=== PATIENT | male | born 1950 | race Caucasian/White ===

== ENCOUNTER 2019-05-02 10:34 | Inpatient (IN) | payer OTHER ==
[~2019-05-02] VITALS: Ht 175.3 cm; Wt 110.0 kg
[2019-05-02] MEDS ORDERED: SODIUM CHLORIDE 0.9% 1,000 ML IV ONE ×2 (11:45→18:00)
[2019-05-02] MEDS ORDERED: ONDANSETRON HCL 4 MG/2 ML VIAL IV ONE ×2 (11:45→12:00)
[2019-05-02 12:28] LABS: Basophils # (auto) 0 uL; Eosinophils # (auto) 0 uL; Eosinophils % (auto) 0.1 % (0.0-7.0); Hematocrit 36.4 % (41.0-53.0); Hemoglobin 12.5 g/dL (13.5-17.5); Lymphocytes # (auto) 0.5 uL; Lymphocytes % (auto) 15.2 % (10.0-50.0); Mean Corpuscular Hemoglobin 31.8 pg (28.0-32.0); Mean Corpuscular Hgb Conc. 34.3 g/dL (32.0-36.0); Mean Corpuscular Volume 92.9 fL (80.0-100.0); Monocytes # (auto) 0.6 uL; Monocytes % (auto) 16.8 % (0.0-12.0); Neutrophils # (auto) 2.4 uL; Neutrophils % (auto) 66.9 % (37.0-80.0); Nucleated Red Blood Cells % 0.1 %; Platelet Count (auto) 79 10^3/uL (140-450); Red Blood Cells 3.92 10^6/uL (4.5-5.90); Red Cell Distribution Width 14.1 % (11.8-14.3); White Blood Cell 3.5 10^3/uL (4.4-10.8)
[2019-05-02 12:37] LABS: INR 1.17 (0.9-1.15); Partial Thromboplastin Time 31.6 sec (23.64-32.05)
[2019-05-02 12:41] LABS: Chloride 106 mmol/L (98-107); Potassium 4.2 mmol/L (3.5-5.1); Sodium 136 mmol/L (136-145)
[2019-05-02 12:48] LABS: Urine Bacteria NONE SEEN /hpf (None Seen); Urine Blood TRACE /uL (Negative); Urine Specific Gravity 1.019 (1.001-1.035); Urine WBC 1 /hpf (0 - 3)
[2019-05-02 12:54] LABS: Alanine Aminotransferase 39 U/L (16-61); Alkaline Phosphatase 65 U/L (45-117); Anion Gap 8 (5-15); Aspartate Aminotransferase 50 U/L (15-37); BUN/Creatinine Ratio 13.1; Bilirubin, Total 1.1 mg/dL (0.2-1.0); Blood Urea Nitrogen 20 mg/dL (7-18); Calcium 9.2 mg/dL (8.5-10.1); Carbon Dioxide 22 mmol/L (21-32); GFR African American 59 mL/min; GFR Non-African American 48 mL/min; Glucose 91 mg/dL (74-106); Total Protein 7.7 g/dL (6.4-8.2)
[2019-05-02] MEDS ORDERED: LORazepam 2MG/ML-1ML VIAL IV ONE (14:45)
[2019-05-02] MEDS ORDERED: LORazepam 2MG/ML-1ML VIAL ONE (14:47)
[2019-05-02] MEDS ORDERED: MORPHINE SULF INJ 2 MG/ML SYRINGE 1ML IV PRN (15:00)
[2019-05-02] MEDS ORDERED: ONDANSETRON HCL 4 MG/2 ML VIAL IV PRN (15:00)
[2019-05-02] MEDS ORDERED: NITROGLYCERIN 0.4 MG SL TAB SL PRN (15:00)
[2019-05-02] MEDS: ACETAMINOPHEN 500 MG TAB PO PRN (15:09)
[2019-05-02 15:11] VITALS: BP 161/94
[2019-05-02] MEDS ORDERED: ACETAMINOPHEN 325 MG TAB PO ONE (15:15)
[2019-05-02] MEDS ORDERED: FAMOTIDINE (10MG/ML) 2ML VL IV SCH (15:15)
[2019-05-02] MEDS: cefTRIAXone 1GM/50ML D5W 50 ML IV SCH (15:18)
[2019-05-02] MEDS: AZITHROMYCIN 500MG/ 250ML 250 ML IV SCH (16:32)
--- NOTE | 2019-05-02 18:26 | NUR ---
RECEIVED REPORT FROM SERGE ORTIZ IN ER WILL AWAIT PATIENT.
[2019-05-02 18:55] VITALS: BP 145/90
--- NOTE | 2019-05-02 18:57 | NUR ---
RECEIVED PATIENT TO THE FLOOR, AWAKE ALERT AND ORIENTED X4. PATIENT AMBULATED TO BED FROM WHEEL CHAIR. BED LOCKED IN LOWEST POSITION WITH TWO SIDE RAILS UP AND CALL LIGHT IN REACH. PATIENT SHIVERING BUT HAS NO FEVER TEMPERATURE IS 98.2 F. COOLING MEASURES INITIATED UPON ARRIVAL PER ER AND PATIENT HOOKED UP TO 3 L NC. SEIZURES PRECAUTIONS PLACED. 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 VS STABLE AT THIS TIME 145/90, 83, 95%, RR 20. WILL ENDORSE ADMISSION AND CARE TO [facility] NURSE.
[2019-05-02] MEDS: ALBUTEROL SULF 2.5 MG/0.5ML(0.5%) NEB SOLN NEB SCH (19:13)
[2019-05-02] MEDS: IPRATROPIUM BROM 0.5 MG/2.5ML INH SOL NEB SCH (19:14)
--- NOTE | 2019-05-02 19:30 | NUR ---
Opening Shift Note Assumed care of patient, awake and alert. No S/S of distress/SOB or pain. Instructed on POC and to call for assist PRN, will continue to monitor for changes Q1hr and PRN. Patient altered unable to follow commands or redirect. Patient removed PIV in ER requires 1:1 monitoring for patient safety. Patient has sitter at bedside to help monitor patient safety.
[2019-05-02] MEDS: CLINDAMYCIN 300MG IV 50 ML IV SCH (20:21)
[2019-05-02] MEDS: FAMOTIDINE (10MG/ML) 2ML VL IV SCH (20:23)
[2019-05-02] MEDS: MORPHINE SULF INJ 2 MG/ML SYRINGE 1ML IV PRN (21:33)
[2019-05-02 22:00] VITALS: BP 137/63
[2019-05-02] MEDS ORDERED: DIVA500T13 PO (22:50)
[2019-05-02] MEDS ORDERED: AMLO5TAB15 PO (22:50)
[2019-05-02] MEDS ORDERED: LORA-622 PO (22:50)
[2019-05-02] MEDS ORDERED: TRAZ100T2 PO (22:50)
[2019-05-02] MEDS ORDERED: DOCU100T15 PO (22:50)
[2019-05-02] MEDS ORDERED: OXCA600T3 PO (22:50)
--- NOTE | 2019-05-02 23:03 | NUR ---
DIFFICULTY SLEEPING PATIENT HAS DIFFICULTY SLEEPING. PATIENT REGULARLY TAKE TRAZADONE 100MG PO QHS AT HOME. MEDICATION RECONCILIATION UPDATED. PAGED HOSPITALIST TO GET ORDERS. AWAITING CALLBACK.
[2019-05-03] MEDS ORDERED: TEMAZEPAM 15 MG CAP PO ONE (00:30)
--- NOTE | 2019-05-03 00:30 | NUR ---
SLEEP AID ADMINISTERED RESTORIL 15MG PO PRESCRIBED PATIENT TOLERATED WELL. PATIENT IS ON AND OFF SLEEPING BUT STILL WAKES UP AND IS FORGETFUL YET SOMETIMES EASY TO REDIRECT. SITTER AT BEDSIDE.
--- NOTE | 2019-05-03 03:30 | NUR ---
IV ACCESS PATIENT IV ACCESS TO LEFT HAND WAS DISLODGED. PATIENT WAS TRYING TO GET OUT OF BED AND PULLED ON IV ACCESS AND WAS REMOVED. INSERTED 22G LFA WITH NS@100 WILL CONTINUE TO MONITOR PATIENT. SITTER AT BEDSIDE.
[2019-05-03 05:00] VITALS: BP 139/89
[2019-05-03] MEDS: CLINDAMYCIN 300MG IV 50 ML IV SCH ×3 (05:58→19:35)
[2019-05-03] MEDS ORDERED: OXCA600T3 PO ×2 (06:33)
--- NOTE | 2019-05-03 06:33 | NUR ---
SPOKE WITH SPOUSE YAYA REGARDING PATIENT STATUS AND WENT OVER MEDICATION LIST. MEDICATION WAS SENT UP WITH PATIENT. AND LEFT IN BEDSIDE DRAWER.
[2019-05-03 06:42] LABS: Basophils # (auto) 0 uL; Basophils % (auto) 1.2 % (0.0-2.0); Eosinophils # (auto) 0 uL; Hematocrit 31.3 % (41.0-53.0); Hemoglobin 11.2 g/dL (13.5-17.5); Lymphocytes # (auto) 0.5 uL; Lymphocytes % (auto) 16.7 % (10.0-50.0); Mean Corpuscular Hemoglobin 32.1 pg (28.0-32.0); Mean Corpuscular Hgb Conc. 35.7 g/dL (32.0-36.0); Monocytes # (auto) 0.5 uL; Neutrophils % (auto) 66.1 % (37.0-80.0); Nucleated Red Blood Cells % 0.1 %; Platelet Count (auto) 59 10^3/uL (140-450); Red Blood Cells 3.48 10^6/uL (4.5-5.90); Red Cell Distribution Width 13.8 % (11.8-14.3); White Blood Cell 3.1 10^3/uL (4.4-10.8)
[2019-05-03 06:52] LABS: BUN/Creatinine Ratio 14.5; Calcium 8.4 mg/dL (8.5-10.1); Potassium 3.9 mmol/L (3.5-5.1)
[2019-05-03] MEDS: IPRATROPIUM BROM 0.5 MG/2.5ML INH SOL NEB SCH ×3 (07:02→19:36)
[2019-05-03] MEDS: ALBUTEROL SULF 2.5 MG/0.5ML(0.5%) NEB SOLN NEB SCH ×3 (07:02→19:36)
--- NOTE | 2019-05-03 07:45 | NUR ---
Patient in bed, oriented x2, with scab on the left elbow. Sitter at bedside.
--- NOTE | 2019-05-03 08:00 | NUR ---
Patient is oriented x2, in bed. Sitter at bedside.
[2019-05-03 08:33] VITALS: BP 106/53
--- NOTE | 2019-05-03 08:50 | NUR ---
said patient fell at home.
[2019-05-03] MEDS: cefTRIAXone 1GM/50ML D5W 50 ML IV SCH (08:54)
[2019-05-03] MEDS: HYDROcodone-ACET 5/325MG TAB PO PRN ×2 (10:04→19:34)
[2019-05-03] MEDS: AZITHROMYCIN 500MG/ 250ML 250 ML IV SCH (10:04)
[2019-05-03] MEDS: FAMOTIDINE (10MG/ML) 2ML VL IV SCH ×2 (10:04→19:36)
--- NOTE | 2019-05-03 10:04 | NUR ---
Patient stated he's in pain. [place] 5/325 PO given for pain. at bedside.
--- NOTE | 2019-05-03 11:40 | NUR ---
Augusto Olsen came over to see the patient. MD looked at the patient's own medications from home. Dr. Armas to put in the orders for POM.
[2019-05-03] MEDS ORDERED: amLODIPine BESYLATE 5 MG TAB PO ONE (11:45)
--- NOTE | 2019-05-03 12:42 | NUR ---
Patient's Own Medications given to patient's to take home.
[2019-05-03 12:58] VITALS: BP 124/75
--- NOTE | 2019-05-03 14:09 | NUR ---
Paged the Engineering again to fix the A/C, the room is very cold.
--- NOTE | 2019-05-03 16:33 | NUR ---
Paged the Engineering again to fix the A/C in the room. Patient is shivering from cold. Additional blankets, hot pack given to patient. Sitter at bedside. came over.
--- NOTE | 2019-05-03 17:50 | NUR ---
Patient sitting up, laying down in bed, with no gown. said patient took off the gown and the Telemetry pack on the chest. Patient on Bed A is yelling, sitter and another SALES REPRESENTATIVE PUBLICATION[employer] are cleaning the patient on Bed A.
[2019-05-03] MEDS: OXcarbazepine 300 MG TAB PO SCH (17:53)
--- NOTE | 2019-05-03 17:55 | NUR ---
Informed Charge Nurse Carlota if patient can be transferred to another sitter room, patient is getting restless because patient on Bed A keeps yelling.
[2019-05-03] MEDS: ACETAMINOPHEN 500 MG TAB PO PRN (19:35)
[2019-05-03] MEDS: traZODone HCL 50 MG TAB PO SCH (19:35)
[2019-05-03] MEDS: DOCUSATE SOD 100 MG CAP PO SCH (19:35)
--- NOTE | 2019-05-03 20:00 | NUR ---
PATIENT REMOVED ALL TELEMETRY AND CLOTHING UNABLE TO REDIRECT PATIENT. PATIENT CONTINUES TO BE AGGITATED WILL REATTEMPT LATER WHEN PATIENT IS MORE CALM
[2019-05-03 22:00] VITALS: BP 103/71
--- NOTE | 2019-05-03 22:30 | NUR ---
ATTEMPTED TO REAPPLY TELEMETRY YET PATIENT IS STILL AGGITATED GETTING IN AND OUT OF BED TO USE BSC AND REFUSES TO WEAR A HOSPITAL GOWN ON.
[2019-05-04] MEDS ORDERED: HYDR-4833 PO (01:14)
[2019-05-04] MEDS ORDERED: PREG75CA PO (01:14)
[2019-05-04] MEDS ORDERED: PRAV20TA3 PO (01:14)
[2019-05-04] MEDS ORDERED: ASPI-231 PO (01:14)
[2019-05-04] MEDS ORDERED: FOLI1TAB6 PO (01:14)
[2019-05-04] MEDS ORDERED: B COCAP3 OR (01:14)
[2019-05-04] MEDS ORDERED: CITA-73 PO (02:07)
[2019-05-04] MEDS ORDERED: SILD100T57 PO (02:07)
[2019-05-04] MEDS ORDERED: ARTISOL13 EACHEYE (02:07)
[2019-05-04] MEDS ORDERED: FERRCAP9 PO (02:07)
[2019-05-04] MEDS ORDERED: OXYB5TAB24 PO (02:10)
--- NOTE | 2019-05-04 02:20 | NUR ---
PATIENT MORE CALM AND SLEEPING IN BED PLACED PATIENT BACK ON TELEMETRY. T-99.4 PATIENT SR@79
--- NOTE | 2019-05-04 02:58 | NUR ---
INFLUENZA A/B SWAB SENT
[2019-05-04] MEDS: HYDROcodone-ACET 5/325MG TAB PO PRN (04:41)
[2019-05-04] MEDS: CLINDAMYCIN 300MG IV 50 ML IV SCH ×3 (04:56→22:00)
[2019-05-04] MEDS: OXcarbazepine 300 MG TAB PO SCH ×2 (04:56→17:19)
--- NOTE | 2019-05-04 06:15 | NUR ---
PATIENT RESTING IN BED COMFORTABLY IN BED ASLEEP. REAPPLIED TELEMETRY. YET UNABLE TO PUT HOSPITAL GOWN ON PATIENT. WILL ENDORSE TO AM NURSE TO TRY TO D/C TELEMETRY SINCE PATIENT IS NONCOMPLIANT Addendum: 05/04/19 at 0704 by MERLE CARRASCO RN RN [employer] HEAD STATES PATIENT IS OFF TELEMETRY. PATIENT IS VERY ANXIOUS AND RIPPED IT OFF PER SITTER. INFORMED PATIENT THAT TELEMETRY NEEDS TO BE ON TO MONITOR HIS HEART. PLACED PATIENT BACK ON TELEMETRY
[2019-05-04] MEDS: ALBUTEROL SULF 2.5 MG/0.5ML(0.5%) NEB SOLN NEB SCH ×3 (07:29→19:50)
[2019-05-04] MEDS: IPRATROPIUM BROM 0.5 MG/2.5ML INH SOL NEB SCH ×3 (07:29→19:50)
--- NOTE | 2019-05-04 07:30 | NUR ---
PATIENT REFUSING TELE AT THIS TIME. PATIENT HAS QUILT SEWER AT BEDSIDE. EDUCATED PATIENT ON PURPOSE AND RISK FACTORS OF TELE MONITORING. PATIENT STILL REFUSES TO WEAR MONITOR
[2019-05-04 09:00] VITALS: BP 134/87
[2019-05-04] MEDS: DOCUSATE SOD 100 MG CAP PO SCH ×2 (10:02→19:48)
[2019-05-04] MEDS: amLODIPine BESYLATE 5 MG TAB PO SCH (10:07)
--- NOTE | 2019-05-04 10:07 | NUR ---
pt is 100% service connected, [facility] does not have any beds if we were considering transferring pt per Linda at the [place]
[2019-05-04] MEDS: cefTRIAXone 1GM/50ML D5W 50 ML IV SCH (10:08)
[2019-05-04] MEDS: AZITHROMYCIN 500MG/ 250ML 250 ML IV SCH (10:11)
[2019-05-04] MEDS: FAMOTIDINE (10MG/ML) 2ML VL IV SCH ×2 (10:15→19:50)
--- NOTE | 2019-05-04 11:46 | NUR ---
Initial Nutrition Assessment: See under Interventions for details Estimated needs based on AJBW 81.3 kg-wt maintenance factors/geriatric needs 1882-0126 kcal (25-30 kcal/kg) 81-98 g (1.0-1.2 g protein/kg) Addendum: 05/04/19 at [address] Amended: Links added.
[2019-05-04] MEDS: ALPRAZolam 0.5 MG TAB PO SCH ×2 (12:19→19:48)
[2019-05-04] MEDS: SODIUM CHLORIDE 0.9% 1,000 ML IV SCH ×2 (12:20→21:00)
[2019-05-04 13:00] VITALS: BP 120/53
--- NOTE | 2019-05-04 13:40 | NUR ---
CALLED DR Raji BISWAS. UPDATED M.D OF PATIENT IRRITABLE BEHAVIOR. PATIENT IS AGITATED AND CONFUSED. 1 MG XANAX PO HAS BEEN ADMINISTERED, WITH NO THERAPEUTIC EFFECT. NEW ORDERS RECEIVED FOR IM HALDOL 5MG, CT OF HEAD WITHOUT CONTRAST, AND NEURO CONSULT. SPOOL SALVAGER AT BEDSIDE WITH PATIENT
[2019-05-04] MEDS ORDERED: HALOPERIDOL LACTATE 5 MG/ML INJ VIAL IM ONE (13:45)
--- NOTE | 2019-05-04 13:46 | NUR ---
ALCOHOL CONSUMPTION DENIED BY . STATES PATIENT DOES NOT CONSUME ANY SUBSTANCE THAT WOULD ALTER IS MENTALITY EXCEPT FOR PRESCRIBED PAIN KILLERS. PATIENT'S STATES NORCO 5/325 QID PRN IS WHAT PATIENT IS PRESCRIBED. MEDICATION CAN BE LOCATED IN MED REC. PATIENT TAKES MEDICATION AT HOME PRN.
--- NOTE | 2019-05-04 15:52 | NUR ---
REPORT GIVEN TO ERMIAS ORTIZ. PATIENT RESTING IN BED WITH NO S/S OF DISTRESS, SOB, OR PAIN. AIRPLANE DISPATCH CLERK AT BEDSIDE.
[2019-05-04] MEDS: Ensure Enlive Strawberry 8oz Bottle PO SCH (17:19)
[2019-05-04 17:43] VITALS: BP 139/90
[2019-05-04] MEDS: MORPHINE SULF INJ 2 MG/ML SYRINGE 1ML IV PRN (17:56)
[2019-05-04] MEDS: traZODone HCL 50 MG TAB PO SCH (19:50)
--- NOTE | 2019-05-04 20:37 | NUR ---
NEURO DR QUEEN AT BEDSIDE FOR NEURO CONSULT
[2019-05-04 21:44] VITALS: BP 131/74
[2019-05-05] MEDS: ACETAMINOPHEN 500 MG TAB PO PRN ×3 (00:20→23:05)
--- NOTE | 2019-05-05 00:30 | NUR ---
PAIN PT C/O OF GENERALIZED PAIN 02/08. PATIENT LOOKS UNCOMFORTABLE AND GUARDING RESTLESS IN BED . ADMINISTERED MORPHINE IV PRESCRIBED. PATIENT TOLERATED WELL. WILL CONTINUE TO MONITOR PATINET.
[2019-05-05] MEDS: CLINDAMYCIN 300MG IV 50 ML IV SCH ×3 (04:40→22:00)
[2019-05-05 05:00] VITALS: BP_SYST 105; BP_SYST 152; BP_DIAS 70; BP_DIAS 80
[2019-05-05] MEDS: OXcarbazepine 300 MG TAB PO SCH ×2 (05:30→18:00)
[2019-05-05] MEDS: ALPRAZolam 0.5 MG TAB PO SCH (05:30)
--- NOTE | 2019-05-05 05:30 | NUR ---
FEVER/PAIN PT C/O OF GENERALIZED PAIN AND HAD T100.2 ADMINISTERED NORCO 1 TAB PO PRESCRIBED. COOLING MEASURES INITIATED. PATIENT CONTINUES OF IVF NS@100. Addendum: 05/05/19 at 0649 by MERLE CARRASCO RN RN PATIENT RESTING IN BED ATTEMPTED TO REAPPLY PATIENT TELEMETRY WITH NO SUCCESS. PATIENT TEMP 98.7 AND CONTINUES ON IVF NS@100. SITTER AT BEDSIDE TO MONITOR PATIENT. SAFETY.
[2019-05-05] MEDS: HYDROcodone-ACET 5/325MG TAB PO PRN (05:45)
[2019-05-05] MEDS: SODIUM CHLORIDE 0.9% 1,000 ML IV SCH ×2 (06:38→17:00)
[2019-05-05] MEDS: ALBUTEROL SULF 2.5 MG/0.5ML(0.5%) NEB SOLN NEB SCH ×3 (07:07→18:54)
[2019-05-05] MEDS: IPRATROPIUM BROM 0.5 MG/2.5ML INH SOL NEB SCH ×3 (07:07→18:54)
[2019-05-05 09:00] VITALS: BP 117/70
[2019-05-05 09:29] VITALS: BP 105/70
[2019-05-05] MEDS: cefTRIAXone 1GM/50ML D5W 50 ML IV SCH (10:20)
[2019-05-05] MEDS: Ensure Enlive Strawberry 8oz Bottle PO SCH ×2 (10:20→18:00)
[2019-05-05] MEDS: FAMOTIDINE (10MG/ML) 2ML VL IV SCH ×2 (10:20→22:00)
[2019-05-05] MEDS: AZITHROMYCIN 500MG/ 250ML 250 ML IV SCH (10:21)
[2019-05-05] MEDS: DOCUSATE SOD 100 MG CAP PO SCH ×2 (10:21→22:00)
[2019-05-05] MEDS: amLODIPine BESYLATE 5 MG TAB PO SCH (10:24)
[2019-05-05] MEDS: HALOPERIDOL LACTATE 5 MG/ML INJ VIAL IM PRN ×2 (11:56→20:21)
[2019-05-05 13:00] VITALS: BP 132/115
--- NOTE | 2019-05-05 13:09 | NUR ---
Fever Reported to nurse by tresa that patient has a fever of 102.1. Doctor Arnoldo called to make aware. New orders for repeat blood and urine cultures. Will administer tylenol and continue to monitor.
--- NOTE | 2019-05-05 16:25 | NUR ---
assessment Patient is a 68 year old male who is confused. Prior to admission patient lived home with his Anna and was independent. Per Anna patient has a fww for home use. Per Anna patients PCP is Dr Dial at the [facility]. Anna informed me patient had a high fever and was becoming confused. Anna took him to the [facility] and they wound not see him as a walk in. Anna then brought patient to urgent care and then was admitted through the ER. Per Anna this is new confusion. Per Anna patient will return home with her on discharge. Anna will be here in the morning to see patient and speak to the MD. Patient does not have a advanced directive or POA. I informed Anna once patient is alert and oriented he should fill out and have notarized advance directive. Anna verbalized understanding and agreed to discharged plan home. Addendum: 05/05/19 at 1630 by Martha BIGGS Amended: Links added.
[2019-05-05 18:17] VITALS: BP 126/68
--- NOTE | 2019-05-05 18:55 | NUR ---
Respiratory note: PT SLEEPING AT THIS TIME, NO RESP DISTRESS NOTED.
--- NOTE | 2019-05-05 20:38 | NUR ---
Opening Shift Note Assumed care of patient, awake and alert aggitated anxious and unable to follow commands. patient was moved from 285B to 294A. He might be anxious from the move, yet unable to calm or redirect. No S/S of respiratory distress/SOB or pain. Administered pt Haldol 2.5mg IM Left deltoid. patient tolerated well. Instructed on POC and to call for assist PRN sitter at bedside for patient safety, will continue to monitor for changes Q1hr and PRN. Addendum: 05/05/19 at 2042 by MERLE CARRASCO RN RN patient had fever earlier. rechecked patient is 97.9 afebrile.
[2019-05-05 22:00] VITALS: BP 125/99
[2019-05-05] MEDS: traZODone HCL 50 MG TAB PO SCH (22:00)
[2019-05-06] MEDS: SODIUM CHLORIDE 0.9% 1,000 ML IV SCH ×3 (03:00→23:00)
[2019-05-06] MEDS: HYDROcodone-ACET 5/325MG TAB PO PRN (03:57)
[2019-05-06] MEDS: OXcarbazepine 300 MG TAB PO SCH ×2 (06:24→18:28)
[2019-05-06] MEDS: CLINDAMYCIN 300MG IV 50 ML IV SCH ×3 (06:24→22:26)
--- NOTE | 2019-05-06 06:48 | NUR ---
PATIENT SLEPT ALMOST THRU THE NIGHT. YET THIS MORNING HES WAS INCONTINENT OF URINE, AND WAS ABLE TO MAKE SENSE OF WHAT HE WAS SAYING, ANSWERED APPROPRIATELY. SITTER AT BEDSIDE. WILL CONTINUE TO MONITOR PATIENT.
--- NOTE | 2019-05-06 07:15 | NUR ---
Opening Note Received report from restaurant shift supervisor RN. Patient is resting in bed, anxious and restless. Patient is alert and oriented x3. Patient is on 3L NC, respirations even and unlabored. Patient denies pain at this time. Sitter at bedside for safety. Reviewed plan of care with patient, patient unable to verbalize understanding. Bed in low and locked position, call light within reach. Will continue to monitor Q1 hour and PRN.
[2019-05-06] MEDS: ALBUTEROL SULF 2.5 MG/0.5ML(0.5%) NEB SOLN NEB SCH ×3 (08:53→19:59)
[2019-05-06] MEDS: IPRATROPIUM BROM 0.5 MG/2.5ML INH SOL NEB SCH ×3 (08:53→19:59)
[2019-05-06 09:00] VITALS: BP 150/90
[2019-05-06] MEDS: AZITHROMYCIN 500MG/ 250ML 250 ML IV SCH (09:13)
[2019-05-06] MEDS: Ensure Enlive Strawberry 8oz Bottle PO SCH ×2 (09:14→18:28)
--- NOTE | 2019-05-06 09:38 | NUR ---
Unable to do EEG Per tech, patient was unable to complete EEG.
--- NOTE | 2019-05-06 09:43 | NUR ---
2ND EEG ATTEMPT UNSUCCESSFUL. PATIENT IS STILL RESTLESS. RN SUMMER NOTIFIED.
--- NOTE | 2019-05-06 09:50 | NUR ---
Urine sample collected and sent to lab
[2019-05-06] MEDS: DOCUSATE SOD 100 MG CAP PO SCH ×2 (10:00→22:30)
[2019-05-06] MEDS: amLODIPine BESYLATE 5 MG TAB PO SCH (10:07)
[2019-05-06] MEDS: FAMOTIDINE (10MG/ML) 2ML VL IV SCH ×2 (10:08→22:27)
[2019-05-06] MEDS: cefTRIAXone 1GM/50ML D5W 50 ML IV SCH (10:46)
--- NOTE | 2019-05-06 10:54 | NUR ---
Dr. Raji Armas Reviewing plan of care with patient and family.
--- NOTE | 2019-05-06 11:45 | NUR ---
Patient agitated Patient trying to get out of bed, patient states he wants to go home. Family at bedside, unable to calm patient down. Will medicate with PRN Haldol. Dr. Raji Armas aware. Will continue to monitor Q1 hour and PRN. Sitter at bedside for safety.
[2019-05-06] MEDS: HALOPERIDOL LACTATE 5 MG/ML INJ VIAL IM PRN (11:48)
--- NOTE | 2019-05-06 11:48 | NUR ---
Haldol Administered PRN Haldol administered for agitation. Will continue to monitor Q1 hour and PRN.
--- NOTE | 2019-05-06 12:50 | NUR ---
Bowel Movement Patient assisted to bedside commode, patient had large, soft stool. Patient cleaned and assisted back to bed. Will continue to monitor Q1 hour and PRN. Sitter at bedside for safety.
--- NOTE | 2019-05-06 15:28 | NUR ---
Rounds Patient resting in bed with eyes closed. No signs or symptoms of distress noted at this time. Will continue to monitor Q1 hour and PRN. Sitter at bedside for safety.
[2019-05-06 17:20] VITALS: BP 128/83
[2019-05-06 17:25] VITALS: BP 128/83
--- NOTE | 2019-05-06 19:15 | NUR ---
Closing Note Report given to overnight babysitter RN. No signs or symptoms of distress noted at this time. Addendum: 05/06/19 at 1933 by LÁZARO LOVING RN RN sitter at bedside for safety
--- NOTE | 2019-05-06 19:40 | NUR ---
Opening Shift Note Assumed care of patient, awake and alert. No S/S of distress/SOB or pain. Instructed on POC and to call for assist PRN, will continue to monitor for changes Q1hr and PRN. Sitter at bedside.
[2019-05-06 21:00] VITALS: BP 117/71
[2019-05-06] MEDS: traZODone HCL 50 MG TAB PO SCH (22:30)
[2019-05-07 05:00] VITALS: BP 142/82
[2019-05-07] MEDS: CLINDAMYCIN 300MG IV 50 ML IV SCH ×3 (06:17→22:05)
[2019-05-07] MEDS: OXcarbazepine 300 MG TAB PO SCH ×2 (06:17→17:44)
[2019-05-07 06:58] LABS: Basophils # (auto) 0.1 uL
[2019-05-07 06:59] LABS: Eosinophils # (auto) 0.4 uL; Eosinophils % (auto) 4.1 % (0.0-7.0); Hematocrit 30.3 % (41.0-53.0); Hemoglobin 10.5 g/dL (13.5-17.5); Lymphocytes # (auto) 1.1 uL; Lymphocytes % (auto) 11.4 % (10.0-50.0); Mean Corpuscular Hgb Conc. 34.6 g/dL (32.0-36.0); Mean Corpuscular Volume 101.2 fL (80.0-100.0); Monocytes # (auto) 0.8 uL; Monocytes % (auto) 7.8 % (0.0-12.0); Neutrophils # (auto) 7.6 uL; Neutrophils % (auto) 75.7 % (37.0-80.0); Platelet Count (auto) 317 10^3/uL (140-450); Red Blood Cells 2.99 10^6/uL (4.5-5.90); Red Cell Distribution Width 14.5 % (11.8-14.3)
[2019-05-07] MEDS: ALBUTEROL SULF 2.5 MG/0.5ML(0.5%) NEB SOLN NEB SCH ×3 (07:12→20:04)
[2019-05-07] MEDS: IPRATROPIUM BROM 0.5 MG/2.5ML INH SOL NEB SCH ×3 (07:12→20:04)
--- NOTE | 2019-05-07 07:50 | NUR ---
Patient in bed, asleep, on O2 at 2 LPM, snoring noted, no acute distress noted. Sitter at bedside.
[2019-05-07] MEDS: Ensure Enlive Strawberry 8oz Bottle PO SCH ×2 (08:01→17:49)
[2019-05-07 08:56] VITALS: BP 130/76
[2019-05-07] MEDS: cefTRIAXone 1GM/50ML D5W 50 ML IV SCH (09:08)
[2019-05-07] MEDS: FAMOTIDINE (10MG/ML) 2ML VL IV SCH ×2 (09:08→22:05)
[2019-05-07] MEDS: SODIUM CHLORIDE 0.9% 1,000 ML IV SCH ×2 (09:08→16:40)
[2019-05-07] MEDS: DOCUSATE SOD 100 MG CAP PO SCH ×2 (09:09→22:06)
[2019-05-07] MEDS: amLODIPine BESYLATE 5 MG TAB PO SCH (09:09)
--- NOTE | 2019-05-07 09:27 | NUR ---
Augusto Olsen at bedside. said patient for possible discharge tomorrow, 05/08/2019.
--- NOTE | 2019-05-07 10:40 | NUR ---
EEG COMPLETED AT BEDSIDE. DIANA CAO.
[2019-05-07] MEDS: AZITHROMYCIN 500MG/ 250ML 250 ML IV SCH (11:00)
[2019-05-07 12:43] VITALS: BP 155/86
--- NOTE | 2019-05-07 14:40 | NUR ---
New IV line started on the right hand, 22 gauge, in one attempt, intact and patent. Patient able to tolerate it. Previous IV line on the left forearm, patient complained of pain, IV line removed, IV catheter intact, pressure dressing applied.
[2019-05-07 16:41] VITALS: BP 147/85
--- NOTE | 2019-05-07 17:50 | NUR ---
Patient refused NS drip at this time. Patient sitting on bed, eating dinner.
--- NOTE | 2019-05-07 18:40 | NUR ---
Dr. Schmidt came over. ordered CPAP initiation and management before bedtime. Dr. Schmidt said patient okay for discharge tomorrow as per Neurology perspective.
--- NOTE | 2019-05-07 18:41 | NUR ---
Called Respiratory Therapy for patient's CPAP initiation and management before bedtime.
[2019-05-07 22:00] VITALS: BP 143/83
[2019-05-07] MEDS: traZODone HCL 50 MG TAB PO SCH (22:06)
--- NOTE | 2019-05-07 22:10 | NUR ---
[facility] Hospitalist Dr. Arana about patient requesting a sleeping pill. Dr. Arana prescribe Temazepam 15mg QHSP PRN. Read orders back to verify. Will follow as prescribe.
[2019-05-07] MEDS ORDERED: TEMAZEPAM 15 MG CAP PO PRN (22:30)
--- NOTE | 2019-05-08 03:20 | NUR ---
RT NOTE: PT OFF BIPAP @ THIS TIME. BEDSIDE AIDE STATED HE HAD COME OFF BIPAP ABOUT 10 MINS PRIOR BECAUSE HE WANTED TO SIT BEDSIDE AND DRINK COFFEE. NO SOB OR DISTRESS NOTED.
[2019-05-08 05:00] VITALS: BP 142/85
[2019-05-08] MEDS: OXcarbazepine 300 MG TAB PO SCH (06:27)
[2019-05-08] MEDS: CLINDAMYCIN 300MG IV 50 ML IV SCH ×2 (06:27→14:00)
[2019-05-08] MEDS: SODIUM CHLORIDE 0.9% 1,000 ML IV SCH (06:27)
[2019-05-08] MEDS: IPRATROPIUM BROM 0.5 MG/2.5ML INH SOL NEB SCH ×2 (06:41→11:57)
[2019-05-08] MEDS: ALBUTEROL SULF 2.5 MG/0.5ML(0.5%) NEB SOLN NEB SCH ×2 (06:41→11:57)
--- NOTE | 2019-05-08 07:30 | NUR ---
OPENING SHIFT NOTE PATIENT RESTING IN BED. RESPIRATIONS EVEN AND UNLABORED. A&OX4. PATIENT IN NO S/S OF DISTRESS AT THIS TIME. DENIES ANY PAIN. PATIENT ON ROOM AIR WITH O2 SATURATIONS AT 97 PERCENT. STATED DOES NOT USE OXYGEN AT HOME JUST CPAP AT NIGHT TIME. PATIENT STATES HE HAS HOME HEALTH SET UP AT HOME ALREADY, BUT DOES NOT RECALL THROUGH WHICH COMPANY. PATIENT UPDATED ON POC. ALL QUESTIONS ANSWERED. SEIZURE PRECAUTIONS IN PLACE PER HOSPITAL PROTOCOL. BED IN LOWEST LOCKED POSITION WITH CALL LIGHT WITHIN REACH. WILL CONTINUE CARE.
[2019-05-08 08:53] VITALS: BP 127/94
[2019-05-08] MEDS: Ensure Enlive Strawberry 8oz Bottle PO SCH (08:53)
[2019-05-08 09:15] VITALS: BP 127/94
[2019-05-08] MEDS ORDERED: CITALOPRAM HYDROBR 20 MG TAB PO SCH (10:00)
[2019-05-08] MEDS: DOCUSATE SOD 100 MG CAP PO SCH (10:00)
[2019-05-08] MEDS: amLODIPine BESYLATE 5 MG TAB PO SCH (10:16)
[2019-05-08] MEDS: FAMOTIDINE (10MG/ML) 2ML VL IV SCH (10:17)
[2019-05-08] MEDS: cefTRIAXone 1GM/50ML D5W 50 ML IV SCH (10:17)
--- NOTE | 2019-05-08 10:30 | NUR ---
Lisa RAE AT BEDSIDE. MADE AWARE OF PATIENT STATUS. RECEIVED ORDERS TO DISCHARGE PATIENT. PATIENT AGREEABLE TO DISCHARGE. WILL FOLLOW THROUGH WITH ORDERS.
[2019-05-08] MEDS: AZITHROMYCIN 500MG/ 250ML 250 ML IV SCH (11:01)
[2019-05-08 13:00] VITALS: BP 164/87
--- NOTE | 2019-05-08 14:00 | NUR ---
patient refusing IV clindamycin. informed of need and purpose. Patient stated he would take his prescribed antibiotic at home. will continue care.
--- NOTE | 2019-05-08 14:35 | NUR ---
D/C Planning Per to resume service with [facility]. Contacted [facility] Ph:) Fax:( [phone]) faxed medical records. Per Phylicia from [facility] to resume service for Pt within 48hrs upon d/c day. Advised DIANA Saunders. Addendum: 05/08/19 at 1437 by MAYLIN YODER Amended: Links added.
--- NOTE | 2019-05-08 15:00 | NUR ---
Discharge instructions given as ordered. Home Health resumed with [facility] per Umbrella Frame Maker. Encourage to follow up with PMD as instructed. Instructed to follow up with appointment with pcp and neurology. All questions and concerns addressed. Patient verbalized understanding. IV removed with catheter intact, pressure dressing applied. Patient taken to vehicle via wheelchair with all personal belongings, accompanied by staff and family member. No distress noted at time of departure.
--- NOTE | 2019-05-08 16:31 | NUR ---
Received referral to resume pt's [facility]. ([phone] phone). . The fax was verified and social science manager called [facility] to confirm that pt was accepted. The person who accepted at [facility] was Randy. Pt was to be discharge today.
== END 2019-05-08 15:00 | disposition home health service (06) | DRG 871 ==
LOC: ER 10:34 → TELE 10:35 → TELE-WESTW 18:55 → WEST WING 05-06 07:51
PROVIDERS: ADMIT Nurse Practitioner Acute Care; ATTEND Family Medicine
DX: A41.9 Sepsis, unspecified organism (principal); G93.41 Metabolic encephalopathy; J18.9 Pneumonia, unspecified organism; F05 Delirium due to known physiological condition; I10 Essential (primary) hypertension; G40.909 Epilepsy, unspecified, not intractable, without status epilepticus; D69.6 Thrombocytopenia, unspecified; D64.9 Anemia, unspecified; Z68.35 Body mass index [BMI] 35.0-35.9, adult; E66.01 Morbid (severe) obesity due to excess calories; E78.5 Hyperlipidemia, unspecified; F41.9 Anxiety disorder, unspecified; K59.09 Other constipation; F32.9 Major depressive disorder, single episode, unspecified; G47.33 Obstructive sleep apnea (adult) (pediatric); Z88.0 Allergy status to penicillin; Z79.899 Other long term (current) drug therapy; Z86.73 Personal history of transient ischemic attack (TIA), and cerebral infarction without residual deficits
CPT/HCPCS: 36415; 70450; 71045; 76705; 80048; 80053; 80164; 81001; 82140; 83605; 84484; 85025; 85610; 85730; 87040; 87086; 87804; 94640; 94660; 94761; 95819; 96361; 96365; 96367; 96375; 97116; 97530; G0378; J0696; J2405; J3490